=== PATIENT | male | born 1960 | race Two or more races ===

== ENCOUNTER 2023-11-20 21:01 | Emergency (ER) | payer OTHER ==
[~2023-11-20] VITALS: Ht 193 cm; Wt 116.1 kg
[2023-11-20] MEDS ORDERED: OZEMPIC0.25 MG/02 SUBCUTANEO (21:12)
== END 2023-11-21 00:31 | disposition left against medical advice (07) ==
LOC: ER 21:01
PROVIDERS: General Practice
DX: R42 Dizziness and giddiness (principal); E11.9 Type 2 diabetes mellitus without complications